=== PATIENT | female | born 1990 | race Caucasian/White ===

== ENCOUNTER 2019-09-04 16:55 | Emergency (ER) | payer OTHER, SELFPAY ==
--- NOTE | ~2019-09-04 | XR_ITS ---
EXAMINATION: XR chest 2V 09/04/2019 17:24 INDICATION: Cough and shortness of breath PROCEDURE: 2 view chest COMPARISON: 05/14/2019 FINDINGS: The lungs are clear. The cardiomediastinal silhouette is within normal limits. There are no pleural effusions. There is no pneumothorax suspected. IMPRESSION: 1: NO ACUTE CARDIOPULMONARY DISEASE. Reviewed, dictated and finalized at location A.
[2019-09-04 17:07] VITALS: BP 126/82; PULSE 113; RESP 24; TEMP 36.4; O2SAT 98
--- NOTE | 2019-09-04 17:33 | ED.URI ---
HPI - URI/Sore Throat General Chief Complaint: Upper Respiratory Infection Stated Complaint: SOB Time Seen by Provider: 09/04/19 17:34 Source: patient and RN notes reviewed Mode of arrival: ambulatory Limitations: no limitations History of Present Illness HPI Narrative: 28 year old female who presents to [facility] care with sinus congestion, cough, shortness of breath since Sunday. Patient reports no known fevers, chills or swats, denies any sore throat or any ear pain. Patient states that she has noted some wheezing, states that cough is nonproductive. Patient reports that her breathing is worse with exertion. Patient is pink in color, no accessory muscle use noted, respirations 24 per minute at rest, cough is harsh sounding.Patient does have history of seasonal allergies takes Zyrtec and uses Flonase nasal spray daily. She does have 12 year history of tobacco abuse of 1/2 ppd of cigarettes. Denies any known exposure to COVID. MD elicited complaint: cough, rhinorrhea and nasal congestion Pertinent past history: seasonal allergies and other (Bronchitis, smoker) Onset (ago): day(s) (3) Consistency: progressively worsening Severity: moderate Pain scale (0-10): 4 Description of mucous: clear Able to tolerate fluids by mouth: Yes Exacerbating factors: exertion and deep breaths Relieving factors: OTC cold medicine Associated symptoms: rhinorrhea, nasal congestion, cough and shortness of breath Treatments prior to arrival: cold medicine Related Data Home Medications Medication Instructions Recorded Confirmed aripiprazole [Abilify] 2 mg PO DAILY 09/04/19 09/04/19 celecoxib [Celebrex] 200 mg PO DAILY 09/04/19 09/04/19 cetirizine [Zyrtec] 10 mg PO DAILY 09/04/19 09/04/19 drospirenone-ethinyl estradiol 1 tablet PO DAILY 09/04/19 09/04/19 [ARNOLDO (29)] fluticasone propionate [Flonase 1 spray INTRANASAL DAILY 09/04/19 09/04/19 Allergy Relief] levothyroxine [Synthroid] 50 mcg PO DAILY 09/04/19 09/04/19 venlafaxine 225 mg PO DAILY 09/04/19 09/04/19 Allergies Allergy/AdvReac Type Severity Reaction Status Date / Time Penicillins Allergy Anaphylaxis Verified 07/30/20 17:15 Review of Systems Review of Systems: Narrative: CONSTITUTIONAL: Denies fever, chills, or sweats. EYES: Denies visual changes, redness, or discharge. ENT: Positive rhinorrhea, congestion, denies sore throat, or otalgia. CARDIOVASCULAR: Denies chest pain, palpitations, or edema. RESPIRATORY: positive cough or dyspnea. GASTROINTESTINAL: Denies abdominal pain, nausea, vomiting, or diarrhea. GENITOURINARY: Denies dysuria or hematuria. SKIN: Denies rash or itching. MUSCULOSKELETAL: Denies back pain, joint pain, or myalgia. NEUROLOGIC: Denies headache, numbness, or weakness. PSYCHIATRIC: Positive history of anxiety or depression. All systems reviewed & are unremarkable except as noted in HPI and below PMFSH Past Medical History Medical History (Updated 09/05/19 @ 00:00 by Gabriela Arriaga) Anxiety and depression Bipolar 1 disorder Seasonal allergies Surgical History Surgical History (Updated 09/05/19 @ 21:11 by Lainey Chowdhury NP) No pertinent past surgical history Social History Social History (Updated 09/04/19 @ 17:50 by Lainey Chowdhury NP) Smoking packs per day: 0.5 Smoking cigarettes per day: 10.0 Years smoked: 12 Smoking pack-years: 6.00 Smoking status: Current every day smoker Tobacco type: cigarettes Living arrangements: with family Gender identity (if verbalized by the patient): Female Comments At time of signature, agree with nursing past medical, surgical, social history. There is no relevant family history pertinent to the presenting complaint Exam Narrative: Exam Narrative: GENERAL: Well-appearing, well-nourished, and in no acute distress. HEAD: Normocephalic, atraumatic. EYES: PERRLA and EOMI. ENT: Nares red, clear rhinorrhea or epistaxis. Mucous membranes moist.TM's normal with good light reflex, throat pink with no
== END 2019-09-04 18:00 | disposition home or self-care (01) ==
PROVIDERS: Emergency Provider Registered Nurse
DX: J40 Bronchitis, not specified as acute or chronic (principal); J32.9 Chronic sinusitis, unspecified; F17.210 Nicotine dependence, cigarettes, uncomplicated; F31.9 Bipolar disorder, unspecified; F41.9 Anxiety disorder, unspecified
CPT/HCPCS: 71046; 99213; G0463